=== PATIENT | female | born 1965 | race Caucasian/White ===

== ENCOUNTER 2016-11-09 17:33 | Emergency (ER) | payer MEDICAID ==
--- NOTE | 2016-11-09 18:42 | Emergency Department Record ---
History of Present Illness - General Chief Complaint: Knee injury Stated Complaint: RT KNEE PAIN Time Seen by Provider: 11/09/16 18:37 Source: Patient, Family Mode of Arrival: Wheelchair Limitations: No limitations - History of Present Illness Initial Comments: 51 yo female presents after a injuring her right knee with a fall yesterday. She has had pain in the knee recently and in the past. No other injuries. No recent illness or fever. She has some pain with weight bearing and some swelling. She has MS. She was in the kitchen and her legs gave out. The pain was mild at first then increased over the next 24 hours. PCP Jair[facility] in [place]. Complaint: Knee injury Onset/Timin -: Days(s) Injury: Knee: Right Type of Injury: Other Place: Home Severity: Severe Severity scale (1-10): 10 Improves With: Nothing Worsens With: Weight bearing Context: Fall, Other Associated Symptoms: Able to partially bear weight - Related Data Home Medications Medication Instructions Recorded Confirmed Last Taken Butalb/Acetaminophen/Caffeine 1 cap PO Q4H PRN cap 05/29/16 11/09/16 Unknown [Fioricet 50-300-40 Mg Capsule] Carvedilol 25 mg PO BID tab 05/29/16 11/09/16 Unknown Clonazepam [Klonopin] 0.5 mg PO BID tab 05/29/16 11/09/16 Unknown Hydrochlorothiazide 25 mg PO DAILY tab 05/29/16 11/09/16 Unknown Omeprazole 20 mg PO QD cap 05/29/16 11/09/16 Unknown Venlafaxine HCl 75 mg PO DAILY tab 05/29/16 11/09/16 Unknown Aspirin [Aspir-Low] 81 mg PO DAILY 11/09/16 11/09/16 Unknown Previous Rx's Medication Instructions Recorded Hydrocodone/Acetaminophen [[place] 1 tab PO Q6H PRN #15 tab 11/09/16 5mg/325mg] Allergies Allergy/AdvReac Type Severity Reaction Status Date / Time ibuprofen [From Motrin] Allergy Severe HIVES Verified 11/09/16 18:15 Iodine and Iodide Containing Allergy Severe HIVES Verified 11/09/16 18:16 Produc naproxen sodium [From Aleve] Allergy Severe HIVES Verified 11/09/16 18:16 sulfamethoxazole Allergy Severe HIVES Verified 11/09/16 18:15 [From Bactrim] trimethoprim [From Bactrim] Allergy Severe HIVES Verified 11/09/16 18:15 Travel Screening - Travel/Exposure Within Last 30 Days Have you traveled within the last 30 days?: No Review of Systems Constitutional: Denies: Chills, Fever, Weakness Eyes: Denies: Eye discharge, Eye pain, Photophobia, Vision change ENT: Denies: Congestion Respiratory: Denies: Cough Cardiovascular: Denies: Chest pain, Syncope Endocrine: Denies: Fatigue Gastrointestinal: Denies: Abdominal pain, Diarrhea, Nausea, Vomiting Genitourinary: Denies: Dysuria, Frequency, Hematuria Musculoskeletal: Reports: As per HPI, Arthralgia, Joint swelling, Myalgia. Denies: Back pain Skin: Reports: Bruising. Denies: Change in color Neurological: Denies: Confusion, Headache Psychiatric: Denies: Anxiety Hematological/Lymphatic: Denies: Blood Clots, Easy bleeding, Easy bruising Past Medical History - SOCIAL HISTORY Smoking Status: Current every day smoker Alcohol Use: None Drug Use: Occassional Drug Use Detail:: Marijuana - RESPIRATORY Hx Respiratory Disorders: No - CARDIOVASCULAR Hx Cardio Disorders: No Comment:: blocked right carotid artery - NEURO Hx Neuro Disorders: Yes Hx CVA: Yes (2010) Comment:: MS - GI Hx GI Disorders: Yes Hx Liver Disease: Yes (Possible Hep C) - Hx Genitourinary Disorders: No - ENDOCRINE Hx Endocrine Disorders: No - MUSCULOSKELETAL Hx Musculoskeletal Disorders: Yes Hx Arthritis: Yes - PSYCH Hx Psych Problems: Yes Hx Anxiety: Yes Hx Depression: Yes - HEMATOLOGY/ONCOLOGY Hx Hematology/Oncology Disorders: No Family Medical History Any Significant Family History?: Yes Family Hx Comment (NOT TO BE USED IN PLACE OF ITEMS BELOW): CHF- Mother Hx Cancer: Father Hx Stroke: Mother Physical Exam - General General Appearance: Alert, Oriented x3, Cooperative, No acute distress Limitations: No limitations - Head Head exam: Atraumatic, Normocephalic, Normal inspection - Eye Eye exam: Normal appearance. negative: Conjunctival injection, Periorbital swelling - ENT ENT exam: Normal exam Ear exam: Normal external inspection Nasal Exam: Normal inspection Mouth exam: Normal external inspection Teeth exam: Normal inspection Throat exam: Normal inspection - Neck Neck exam: Normal inspection, Full ROM. negative: Tenderness - Respiratory Respiratory exam: Normal lung sounds bilaterally. negative: Respiratory distress - Cardiovascular Cardiovascular Exam: Regular rate, Normal rhythm, Normal heart sounds - GI/Abdominal GI/Abdominal exam: Soft. negative: Tenderness - Rectal Rectal exam: Deferred - exam: Deferred - Extremities Extremities exam: Joint swelling, Normal capillary refill, Tenderness. negative : Normal inspection, Full ROM (mild decrease due to pain, no deformity or erythema) Image of Full Body: 1 - very mild swelling and slight bruising on inspection, tender anterior, quads and patella tendon function intact, tender laterally, - Back Back exam: Reports: Normal inspection, Full ROM. Denies: Muscle spasm, Rash noted, Tenderness - Neurological Neurological exam: Alert, Normal gait, Oriented X3, Reflexes normal - Psychiatric Psychiatric exam: Normal affect, Normal mood - Skin Skin exam: Dry, Intact, Normal color, Warm Course Vital Signs 11/09/16 18:04 Temperature 97.7 F Pulse Rate 99 H Respiratory 20 Rate Blood Pressure 128/97 Pulse Ox 96 - Reevaluation(s) Reevaluation #1: The XR was negative for FX Their is degenerative changes She will be given ice packs, knee immobilzer, and walker or crutches. 11/09/16 19:28 Disposition Disposition: Discharge Clinical Impression: Contusion, knee Qualifiers: Encounter type: initial encounter Laterality: right Qualified Code(s): S80.01XA - Contusion of right knee, initial encounter Disposition: Home, Self-Care Condition: (1) Good Instructions: Knee Effusion (ED) Additional Instructions: Ice and elevate Avoid weight bearing until pain free Call your doctor tomorrow for close follow up Use the brace and walker for support and comfort Prescriptions: Hydrocodone/Acetaminophen [[place] 5mg/325mg] 1 tab PO Q6H PRN #15 tab PRN Reason: Pain - General Forms: Patient Portal Access Time of Disposition: 19:29
[2016-11-09] MEDS ORDERED: HYDROCODONE/APAP 5/325MG TABLET PO ONE (18:46)
== END 2016-11-09 19:59 | disposition home or self-care (01) ==
LOC: ER 17:33
DX: S80.01XA Contusion of right knee, initial encounter (principal); X50.0XXA Overexertion from strenuous movement or load, initial encounter; Y92.000 Kitchen of unspecified non-institutional (private) residence as the place of occurrence of the external cause
CPT/HCPCS: 99283

== ENCOUNTER 2017-03-08 15:23 | Emergency (ER) | payer MEDICAID ==
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
[2017-03-08] MEDS ORDERED: HYDROCODONE/APAP 7.5/325MG TABLET PO ONE (17:36)
--- NOTE | 2017-03-08 22:26 | CT SCAN REPORT ---
EXAM: CT SCAN CERVICAL SPINE WO CONTRAST HISTORY: INJURY. TECHNIQUE: Sequential axial images were obtained through the cervical spine without intravenous contrast administration. Sagittal and coronal reformatted images were performed. FINDINGS: There is no evidence of compression fracture deformity, subluxation, or perched facet. There is degenerative change at the C5-6 level. This produces bilateral neural foraminal narrowing. IMPRESSION: DEGENERATIVE CHANGE AT C5-6 LEVEL. NO EVIDENCE OF ACUTE FRACTURE, SUBLUXATION, OR PERCHED FACET. JOB NUMBER: [id number] MTDD
--- NOTE | 2017-03-08 22:31 | CT SCAN REPORT ---
EXAM: CT SCAN CHEST WO CONTRAST HISTORY: INJURY. TECHNIQUE: Sequential axial images were obtained from the thoracic inlet through the bilateral adrenal glands without intravenous contrast administration. Sagittal and coronal reformatted images were performed. FINDINGS: The heart and pericardium appear normal. There is no mediastinal or hilar lymphadenopathy. The lung barnes are clear. No pneumothorax. The thoracic spine appears normal. The sternum appears normal. The clavicles appear normal. There is no rib fracture deformity. IMPRESSION: NEGATIVE NONCONTRAST CT OF THE CHEST. JOB NUMBER: [id number] MTDD
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
== END 2017-03-08 17:47 | disposition home or self-care (01) ==
LOC: ER 15:23
DX: S20.229A Contusion of unspecified back wall of thorax, initial encounter (principal); S16.1XXA Strain of muscle, fascia and tendon at neck level, initial encounter; T18.4XXA Foreign body in colon, initial encounter; W18.30XA Fall on same level, unspecified, initial encounter
CPT/HCPCS: 71250; 72125; 74176; 99283; 99284

== ENCOUNTER 2017-03-24 20:25 | Emergency (ER) | payer MEDICAID ==
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
--- NOTE | 2017-03-26 07:26 | RADIOLOGY REPORT ---
EXAM: RIGHT KNEE, THREE VIEWS HISTORY: CHRONIC RIGHT KNEE PAIN. TECHNIQUE: Three views of the right knee were obtained. Comparison: Right knee radiograph 11/09/16. FINDINGS: Increased density in the suprapatellar recess consistent with small joint effusion. Small osteophytes at the medial compartment and patellofemoral compartment. No acute fracture. IMPRESSION: NO CHANGE. MILD BICOMPARTMENTAL ARTHRITIC CHANGE OF THE RIGHT KNEE WITH SMALL JOINT EFFUSION. NO ACUTE OSSEOUS ABNORMALITY. JOB NUMBER: [id number] [facility]
--- NOTE | 2017-03-26 07:29 | RADIOLOGY REPORT ---
EXAM: PELVIS, TWO VIEWS HISTORY: TWO DAYS PELVIS PAIN. TECHNIQUE: Two views of the pelvis were obtained. Comparison: Pelvis CT 03/08/17. FINDINGS: The sacroiliac joints are unremarkable. Minimal narrowing of the superior right femoroacetabular joint. No acute fracture. Linear radiodense focus overlying the right lower quadrant measuring 18 mm may be extrinsic to the patient. IMPRESSION: MILD OSTEOARTHRITIC CHANGE OF THE RIGHT FEMOROACETABULAR JOINT. NO ACUTE PROCESS. J[facility]BER: [id number] [facility]
== END 2017-03-24 22:05 | disposition home or self-care (01) ==
LOC: ER 20:25
DX: S86.911A Strain of unspecified muscle(s) and tendon(s) at lower leg level, right leg, initial encounter (principal); M54.6 Pain in thoracic spine; X50.9XXA Other and unspecified overexertion or strenuous movements or postures, initial encounter; Y93.01 Activity, walking, marching and hiking; Y92.009 Unspecified place in unspecified non-institutional (private) residence as the place of occurrence of the external cause
CPT/HCPCS: 72170; 99283

== ENCOUNTER 2017-03-26 10:46 | Emergency (ER) | payer MEDICAID ==
--- NOTE | 2017-03-26 11:04 | Emergency Department Record ---
History of Present Illness - General Chief Complaint: Ankle/Foot Injury Stated Complaint: RIGHT FOOT PAIN Time Seen by Provider: 03/26/17 10:51 Source: Patient Mode of Arrival: EMS Limitations: No limitations - History of Present Illness Initial Comments: The patient is here due to R foot pain. She states she recently has been walking a lot and it has been painful. She denies any fall, trauma, fever,new R knee pain, or injury. The patient states she has a long hx of chronic foot pain and has had surgery in the past. She also is out of her chronic pain medicines which include Tramadol and [place]. The patient was just in the ER 2 days ago for R knee pain also. MD Complaint: Foot injury Onset/Timin -: Days(s) Type of Injury: Unknown Place: Home Severity scale (1-10): 8 Improves With: Nothing Worsens With: Nothing Context: Walking Associated Symptoms: Able to partially bear weight - Related Data Home Medications Medication Instructions Recorded Confirmed Last Taken Butalb/Acetaminophen/Caffeine 1 cap PO Q4H PRN cap 05/29/16 03/24/17 Unknown [Fioricet 50-300-40 Mg Capsule] Carvedilol 25 mg PO BID tab 05/29/16 03/24/17 Unknown Clonazepam [Klonopin] 0.5 mg PO BID tab 05/29/16 03/24/17 Unknown Hydrochlorothiazide 25 mg PO DAILY tab 05/29/16 03/24/17 03/08/17 Omeprazole 20 mg PO QD cap 05/29/16 03/24/17 Unknown Aspirin 325 mg PO DAILY 03/08/17 03/24/17 03/08/17 Hydrocodone/Acetaminophen [[place] 1 tab PO Q6H PRN 03/08/17 03/24/17 03/07/17 7.5mg/325mg] Topiramate [Topamax] 2 tab PO BID 03/24/17 03/24/17 Unknown Previous Rx's Medication Instructions Recorded Hydrocodone/Acetaminophen [[place] 1 tab PO Q8H PRN #15 tab 03/08/17 7.5mg/325mg] Acetaminophen 325 mg PO QID #28 tablet 03/26/17 Allergies Allergy/AdvReac Type Severity Reaction Status Date / Time ibuprofen [From Motrin] Allergy Severe HIVES Verified 11/09/16 18:15 Iodine and Iodide Containing Allergy Severe HIVES Verified 11/09/16 18:16 Produc naproxen sodium [From Aleve] Allergy Severe HIVES Verified 11/09/16 18:16 sulfamethoxazole Allergy Severe HIVES Verified 11/09/16 18:15 [From Bactrim] trimethoprim [From Bactrim] Allergy Severe HIVES Verified 11/09/16 18:15 Travel Screening - Travel/Exposure Within Last 30 Days Have you traveled within the last 30 days?: No Review of Systems Constitutional: Denies: Chills, Fever Eyes: Denies: Eye discharge ENT: Denies: Congestion Respiratory: Denies: Cough, Dyspnea Past Medical History - SOCIAL HISTORY Smoking Status: Current every day smoker Alcohol Use: None Drug Use: None - RESPIRATORY Hx Respiratory Disorders: No - CARDIOVASCULAR Hx Cardio Disorders: No Comment:: blocked right carotid artery - NEURO Hx Neuro Disorders: Yes Hx CVA: Yes (2010) Comment:: MS - GI Hx GI Disorders: Yes Hx Liver Disease: Yes (Possible Hep C) - Hx Genitourinary Disorders: No - ENDOCRINE Hx Endocrine Disorders: No - MUSCULOSKELETAL Hx Musculoskeletal Disorders: Yes Hx Arthritis: Yes - PSYCH Hx Psych Problems: Yes Hx Anxiety: Yes Hx Depression: Yes - HEMATOLOGY/ONCOLOGY Hx Hematology/Oncology Disorders: No Family Medical History Any Significant Family History?: Yes Family Hx Comment (NOT TO BE USED IN PLACE OF ITEMS BELOW): CHF- Mother Hx Cancer: Father Hx Stroke: Mother Physical Exam - General General Appearance: Alert, Oriented x3, Cooperative, No acute distress - Head Head exam: Atraumatic, Normocephalic, Normal inspection - Eye Eye exam: Normal appearance, PERRL - Extremities Extremities exam: Normal capillary refill, Tenderness (There is no swelling or bruising or erythema but there is diffuse dorsal R foot tenderness.). negative : Normal inspection (There are post op changes to the 1st MT area and chronic 1st and 2nd toe defomities. ), Joint swelling Course Vital Signs 03/26/17 10:53 Temperature 97.8 F Pulse Rate [ 78 Pulse Ox Probe] Respiratory 20 Rate Blood Pressure 110/72 [Left Arm] Pulse Ox 98 - Reevaluation(s) Reevaluation #1: I did discuss the xray result with the patient. She very much would like Tramadol for pain but I explained to her that I do not prescribe that medicine due to the seizure side effect. She is to F/U with her PCP due to her chronic foot pain. 03/26/17 11:33 Disposition Disposition: Discharge Clinical Impression: Foot pain Qualifiers: Laterality: right Qualified Code(s): M79.671 - Pain in right foot Disposition: Home, Self-Care Condition: (1) Good Instructions: Arthralgia (ED) Additional Instructions: Please use the hard soled shoe and crutches for 5 days and see your PCP next week for recheck. Ice and elevate your foot for 2 days when possible. Please also F/U in the GI specialty clinic as directed. Prescriptions: Acetaminophen 325 mg PO QID #28 tablet Forms: Patient Portal Access Time of Disposition: 11:36 Quality - Quality Measures Quality Measures: N/A - Blood Pressure Screening View Details: Yes Blood Pressure Classification: Normal BP Reading Systolic Measurement: 110 Diastolic Measurement: 72 Screening for High Blood Pressure: < Normal BP, F/U Not Required > [G8783] Normal BP Follow-up Interventions: No follow-up required
[2017-03-26] MEDS ORDERED: TRAMADOL HCL 50 MG TABLET PO ONE (11:53)
--- NOTE | 2017-03-26 13:21 | Emergency Department Record ---
History of Present Illness - General Chief Complaint: Ankle/Foot Injury Stated Complaint: RIGHT FOOT PAIN Time Seen by Provider: 03/26/17 10:51 Source: Patient Mode of Arrival: EMS Limitations: No limitations - History of Present Illness Onset/Timin -: Days(s) Type of Injury: Unknown Place: Home Severity scale (1-10): 8 Improves With: Nothing Worsens With: Nothing Context: Walking Associated Symptoms: Able to partially bear weight - Related Data Home Medications Medication Instructions Recorded Confirmed Last Taken Butalb/Acetaminophen/Caffeine 1 cap PO Q4H PRN cap 05/29/16 03/24/17 Unknown [Fioricet 50-300-40 Mg Capsule] Carvedilol 25 mg PO BID tab 05/29/16 03/24/17 Unknown Clonazepam [Klonopin] 0.5 mg PO BID tab 05/29/16 03/24/17 Unknown Hydrochlorothiazide 25 mg PO DAILY tab 05/29/16 03/24/17 03/08/17 Omeprazole 20 mg PO QD cap 05/29/16 03/24/17 Unknown Aspirin 325 mg PO DAILY 03/08/17 03/24/17 03/08/17 Hydrocodone/Acetaminophen [[place] 1 tab PO Q6H PRN 03/08/17 03/24/17 03/07/17 7.5mg/325mg] Topiramate [Topamax] 2 tab PO BID 03/24/17 03/24/17 Unknown Previous Rx's Medication Instructions Recorded Hydrocodone/Acetaminophen [[place] 1 tab PO Q8H PRN #15 tab 03/08/17 7.5mg/325mg] Acetaminophen 325 mg PO QID #28 tablet 03/26/17 Allergies Allergy/AdvReac Type Severity Reaction Status Date / Time ibuprofen [From Motrin] Allergy Severe HIVES Verified 11/09/16 18:15 Iodine and Iodide Containing Allergy Severe HIVES Verified 11/09/16 18:16 Produc naproxen sodium [From Aleve] Allergy Severe HIVES Verified 11/09/16 18:16 sulfamethoxazole Allergy Severe HIVES Verified 11/09/16 18:15 [From Bactrim] trimethoprim [From Bactrim] Allergy Severe HIVES Verified 11/09/16 18:15 Travel Screening - Travel/Exposure Within Last 30 Days Have you traveled within the last 30 days?: No Review of Systems Constitutional: Denies: Chills, Fever Eyes: Denies: Eye discharge ENT: Denies: Congestion Respiratory: Denies: Cough, Dyspnea Past Medical History - SOCIAL HISTORY Smoking Status: Current every day smoker Alcohol Use: None Drug Use: None - RESPIRATORY Hx Respiratory Disorders: No - CARDIOVASCULAR Hx Cardio Disorders: No Comment:: blocked right carotid artery - NEURO Hx Neuro Disorders: Yes Hx CVA: Yes (2010) Comment:: MS - GI Hx GI Disorders: Yes Hx Liver Disease: Yes (Possible Hep C) - Hx Genitourinary Disorders: No - ENDOCRINE Hx Endocrine Disorders: No - MUSCULOSKELETAL Hx Musculoskeletal Disorders: Yes Hx Arthritis: Yes - PSYCH Hx Psych Problems: Yes Hx Anxiety: Yes Hx Depression: Yes - HEMATOLOGY/ONCOLOGY Hx Hematology/Oncology Disorders: No Family Medical History Any Significant Family History?: Yes Family Hx Comment (NOT TO BE USED IN PLACE OF ITEMS BELOW): CHF- Mother Hx Cancer: Father Hx Stroke: Mother Physical Exam - General Limitations: No limitations - Extremities Extremities exam: Normal inspection, Other (Pulses to the R foot are WNL with a normal DP and PT pulses. There was no warmth or erythema appreciated. ). negative: Calf tenderness, Joint swelling, Pedal edema - Neurological Neurological exam: Abnormal gait (due to R foot pain.), Alert. negative: Motor sensory deficit, Normal gait Course Vital Signs 03/26/17 10:53 Temperature 97.8 F Pulse Rate [ 78 Pulse Ox Probe] Respiratory 20 Rate Blood Pressure 110/72 [Left Arm] Pulse Ox 98 Disposition Clinical Impression: Foot pain Qualifiers: Laterality: right Qualified Code(s): M79.671 - Pain in right foot Disposition: Home, Self-Care Condition: (1) Good Instructions: Arthralgia (ED) Additional Instructions: Please use the hard soled shoe and crutches for 5 days and see your PCP next week for recheck. Ice and elevate your foot for 2 days when possible. Please also F/U in the GI specialty clinic as directed. Prescriptions: Acetaminophen 325 mg PO QID #28 tablet Forms: Patient Portal Access Quality - Quality Measures Quality Measures: N/A - Blood Pressure Screening View Details: Yes Blood Pressure Classification: Normal BP Reading Systolic Measurement: 110 Diastolic Measurement: 72 Screening for High Blood Pressure: < Normal BP, F/U Not Required > [G8783] Normal BP Follow-up Interventions: No follow-up required
--- NOTE | 2017-03-27 07:26 | RADIOLOGY REPORT ---
EXAM: RIGHT FOOT COMPLETE HISTORY: METATARSAL PAIN OF THE RIGHT FOOT FOR FIVE DAYS. NO KNOWN INJURY. PRIOR [place] SURGERY. TECHNIQUE: Three views of the right foot were obtained. Comparison: None. Encounter: Initial. FINDINGS: There is normal bone mineralization. Mild hallux valgus deformity is present. No acute fracture, dislocation, or destructive bone lesion is seen. There are changes of arthrodesis of the second PIP joint. There is mild extension deformity of the second MTP joint. Mild degenerative changes are scattered throughout the foot most pronounced at the mid and distal levels. No periarticular erosion. IMPRESSION: 1. NO ACUTE BONE NOR JOINT ABNORMALITY IDENTIFIED. 2. MILD DEGENERATIVE CHANGES. 3. MILD HALLUX VALGUS DEFORMITY. 4. POST ARTHRODESIS OF THE SECOND PIP JOINT. MILD EXTENSION DEFORMITY OF THE SECOND MTP JOINT. JOB NUMBER: [id number] [facility]
== END 2017-03-26 12:08 | disposition home or self-care (01) ==
LOC: ER 10:46
DX: G89.11 Acute pain due to trauma (principal); M79.671 Pain in right foot
CPT/HCPCS: 99283

== ENCOUNTER 2017-04-11 03:38 | Emergency (ER) | payer MEDICAID ==
[2017-04-11] MEDS: KETOROLAC 30 MG/ML VIAL IM ONE (04:19)
[2017-04-11] MEDS: CLINDAMYCIN 150 MG CAP PO ONE (04:19)
--- NOTE | 2017-04-11 04:20 | Emergency Department Record ---
History of Present Illness - General Chief complaint: Lower Extremity Pain Stated complaint: R FOOT PAIN/CELLULITIS Source: Patient Mode of Arrival: EMS Limitations: No limitations - History of Present Illness Initial comments: 51 yo female presents to ED with a CC of right foot pain. Patient reports that she was seen and evaluated for chronic foot pain on 03/26, seen at [facility] the following day and diagnosed with Cellulitis following laboratory studies and dopper examination that was negative for DVT. Patient reports that she has been taking Clindamycin 1 tablet TID (was given Rx for 63) but realized that she had been taking her antibiotic incorrectly and ran out yesterday (would have taken 42 tablets leaving 21 tablets left-over). Patient also reports being prescribed Tramadol both from [facility] as well as through her PCP 04/09/17 ( From [facility] review). Patient denies fevers, chills, or recent illness. MD Complaint: Extremity pain Onset/Timin -: Hour(s) Location: Right, Foot History of Same: Yes Radiation: Proximal Severity scale (1-10): >10 Quality: Sharp, Stabbing Consistency: Constant Improves with: Nothing Worsens with: Palpation, Walking, Weight bearing Associated Symptoms: Denies other symptoms - Related Data Home Medications Medication Instructions Recorded Confirmed Last Taken Butalb/Acetaminophen/Caffeine 1 cap PO Q4H PRN cap 05/29/16 04/11/17 04/10/17 [Fioricet 50-300-40 Mg Capsule] Carvedilol 25 mg PO BID tab 05/29/16 04/11/17 04/10/17 Clonazepam [Klonopin] 0.5 mg PO BID tab 05/29/16 04/11/17 Unknown Aspirin 325 mg PO DAILY 03/08/17 04/11/17 04/10/17 Hydrochlorothiazide 25 mg PO DAILY 04/11/17 04/11/17 04/10/17 Previous Rx's Medication Instructions Recorded Clindamycin HCl 300 mg PO QID #28 capsule 04/11/17 Allergies Allergy/AdvReac Type Severity Reaction Status Date / Time ibuprofen [From Motrin] Allergy Severe HIVES Verified 11/09/16 18:15 Iodine and Iodide Containing Allergy Severe HIVES Verified 11/09/16 18:16 Produc naproxen sodium [From Aleve] Allergy Severe HIVES Verified 11/09/16 18:16 sulfamethoxazole Allergy Severe HIVES Verified 11/09/16 18:15 [From Bactrim] trimethoprim [From Bactrim] Allergy Severe HIVES Verified 11/09/16 18:15 Travel Screening - Travel/Exposure Within Last 30 Days Have you traveled within the last 30 days?: No - Travel Symptoms Symptom Screening: None Review of Systems Constitutional: Denies: Chills, Fever, Malaise, Night sweats Eyes: Denies: Eye discharge, Eye pain ENT: Denies: Congestion, Ear pain, Epistaxis Respiratory: Denies: Cough, Dyspnea Cardiovascular: Denies: Chest pain, Dyspnea on exertion Endocrine: Denies: Fatigue, Heat or cold intolerance Gastrointestinal: Denies: Abdominal pain, Nausea, Vomiting Genitourinary: Denies: Incontinence, Retention Musculoskeletal: Reports: Arthralgia. Denies: Back pain, Gout Skin: Denies: Bruising, Change in color Neurological: Denies: Abnormal gait, Confusion, Headache, Seizure Psychiatric: Denies: Anxiety Hematological/Lymphatic: Denies: Anemia, Blood Clots Past Medical History - SOCIAL HISTORY Smoking Status: Current every day smoker Alcohol Use: None Drug Use: Occasional Drug Use Detail:: Marijuana - RESPIRATORY Hx Respiratory Disorders: No - CARDIOVASCULAR Hx Cardio Disorders: Yes Comment:: blocked right carotid artery - NEURO Hx Neuro Disorders: Yes Hx CVA: Yes (2010) Comment:: MS - GI Hx GI Disorders: Yes Hx Liver Disease: Yes (Possible Hep C) - Hx Genitourinary Disorders: No - ENDOCRINE Hx Endocrine Disorders: No - MUSCULOSKELETAL Hx Musculoskeletal Disorders: Yes Hx Arthritis: Yes Hx Fibromyalgia: Yes - PSYCH Hx Psych Problems: Yes Hx Anxiety: Yes Hx Depression: Yes - HEMATOLOGY/ONCOLOGY Hx Hematology/Oncology Disorders: No Family Medical History Any Significant Family History?: Yes Family Hx Comment (NOT TO BE USED IN PLACE OF ITEMS BELOW): CHF- Mother Hx Cancer: Father Hx Stroke: Mother Physical Exam - General General Appearance: Alert, Oriented x3, Cooperative, Anxious (Patient appears anxious on examination) Limitations: No limitations - Head Head exam: Atraumatic, Normocephalic, Normal inspection Head exam detail: negative: Abrasion, Contusion, Drake's sign, General tenderness, Hematoma, Laceration - Eye Eye exam: Normal appearance. negative: Conjunctival injection, Periorbital swelling, Periorbital tenderness, Scleral icterus - ENT Ear exam: negative: Auricular hematoma, Auricular trauma Nasal Exam: negative: Active bleeding, Discharge, Dried blood, Foreign body Mouth exam: negative: Drooling, Laceration, Muffled voice, Tongue elevation - Neck Neck exam: Normal inspection. negative: Meningismus, Tenderness - Respiratory Respiratory exam: Normal lung sounds bilaterally. negative: Rales, Respiratory distress, Rhonchi, Stridor - Cardiovascular Cardiovascular Exam: Regular rate, Normal rhythm, Normal heart sounds Peripheral Pulses: 3+: Radial (R) (normal pulse) - GI/Abdominal GI/Abdominal exam: Soft. negative: Rebound, Rigid, Tenderness - Rectal Rectal exam: Deferred - exam: Deferred - Extremities Extremities exam: Other (Normal pulse on examination, no erythema is present, no STS is present on examination). negative: Calf tenderness, Pedal edema, Tenderness - Back Back exam: Denies: CVA tenderness (R), CVA tenderness (L) - Neurological Neurological exam: Alert, Oriented X3 - Psychiatric Psychiatric exam: Anxious - Skin Skin exam: Normal color. negative: Abrasion Type of lesion: negative: abrasion Course Vital Signs 04/11/17 03:43 Temperature 97.5 F L Pulse Rate [ 83 Pulse Ox Probe] Respiratory 26 H Rate Blood Pressure 122/108 [Left Arm] Pulse Ox 94 L - Reevaluation(s) Reevaluation #1: 04/11/17 04:22 On examination there is no obvious signs of cellulitis, patient is repeatedly asking for pain medication but reports having her Tramadol with her. Will renew the patient's clindamycin as she is convinced that she has cellulitis and administer Toradol in ED (patient reports having toradaol previously without adverse reaction). Patient was instructed to follow-up with Dr. De La O in 1-3 days as directed. Disposition Disposition: Discharge Clinical Impression: Chronic foot pain Qualifiers: Laterality: right Qualified Code(s): M79.671 - Pain in right foot Disposition: Home, Self-Care Condition: (2) Stable Instructions: Chronic Pain (ED) Additional Instructions: Return to ED if your symptoms worsen or if you have any concerns. Clindamycin as prescribed. Follow-up with Dr. De La O in 1-3 days as directed. Prescriptions: Clindamycin HCl 300 mg PO QID #28 capsule Forms: Patient Portal Access Time of Disposition: 04:25 Quality - Quality Measures Quality Measures: N/A - Blood Pressure Screening Blood Pressure Classification: Normal BP Reading Systolic Measurement: 119 Diastolic Measurement: 76 Screening for High Blood Pressure: < Normal BP, F/U Not Required > [G8783] Normal BP Follow-up Interventions: No follow-up required
== END 2017-04-11 04:38 | disposition home or self-care (01) ==
LOC: ER 03:38
DX: G89.29 Other chronic pain (principal); M79.671 Pain in right foot
CPT/HCPCS: 99283 ×2; 96372; J1885

== ENCOUNTER 2017-04-25 12:15 | Emergency (ER) | payer MEDICAID ==
--- NOTE | 2017-04-25 13:25 | Emergency Department Record ---
History of Present Illness - General Chief complaint: Lower Extremity Pain Stated complaint: L FOOT INFECTION Time Seen by Provider: 04/25/17 13:12 Source: Patient Mode of Arrival: Ambulatory Limitations: No limitations - History of Present Illness Initial comments: The patient is here due to R foot pain. She has had a chronic problem with R foot pain and presumed Cellulitis. She just finished her oral Abx about a week ago and now for the last 3 days the pain in the foot has worsened and she believes she has the Cellulitis back again. The patient denies any trauma, injury, or fall and also denies any fever, chills, or vomiting. The patient also states she is out of all her medicines and is supposed to see her PCP soon in the family practice clinic here. MD Complaint: Extremity pain Onset/Timin -: Month(s) Location: Right, Foot Quality: Aching Consistency: Constant Improves with: Cold therapy Worsens with: Nothing Associated Symptoms: Denies other symptoms - Related Data Home Medications Medication Instructions Recorded Confirmed Last Taken Butalb/Acetaminophen/Caffeine 1 cap PO Q4H PRN cap 05/29/16 04/25/17 04/24/17 [Fioricet 50-300-40 Mg Capsule] Carvedilol 25 mg PO BID tab 05/29/16 04/25/17 04/24/17 Clonazepam [Klonopin] 0.5 mg PO BID tab 05/29/16 04/25/17 04/24/17 Aspirin 325 mg PO DAILY 03/08/17 04/25/17 04/24/17 Hydrochlorothiazide 25 mg PO DAILY 04/11/17 04/25/17 04/24/17 Hydrocodone/Acetaminophen [[place] 1 each PO ASDIR 04/25/17 04/25/17 04/24/17 7.5-325 Tablet] Tramadol HCl [Ultram] 50 mg PO Q6H 04/25/17 04/25/17 04/24/17 Previous Rx's Medication Instructions Recorded Cephalexin [Keflex] 500 mg PO QID #28 cap 04/25/17 Allergies Allergy/AdvReac Type Severity Reaction Status Date / Time ibuprofen [From Motrin] Allergy Severe HIVES Verified 11/09/16 18:15 Iodine and Iodide Containing Allergy Severe HIVES Verified 11/09/16 18:16 Produc naproxen sodium [From Aleve] Allergy Severe HIVES Verified 11/09/16 18:16 sulfamethoxazole Allergy Severe HIVES Verified 11/09/16 18:15 [From Bactrim] trimethoprim [From Bactrim] Allergy Severe HIVES Verified 11/09/16 18:15 Travel Screening - Travel/Exposure Within Last 30 Days Have you traveled within the last 30 days?: No - Travel/Exposure Within Last Year Have you traveled outside the [place] in the last year?: No - Additonal Travel Details Have you been exposed to anyone with a communicable illness?: No - Travel Symptoms Symptom Screening: None Review of Systems Constitutional: Denies: Chills, Fever Eyes: Denies: Eye discharge ENT: Denies: Congestion Respiratory: Denies: Cough Musculoskeletal: Reports: Arthralgia Past Medical History - SOCIAL HISTORY Smoking Status: Current every day smoker Alcohol Use: None Drug Use: Occasional Drug Use Detail:: Marijuana - RESPIRATORY Hx Respiratory Disorders: No - CARDIOVASCULAR Hx Cardio Disorders: Yes Comment:: blocked right carotid artery - NEURO Hx Neuro Disorders: Yes Hx CVA: Yes (2010) Comment:: MS - GI Hx GI Disorders: Yes Hx Liver Disease: Yes (Possible Hep C) - Hx Genitourinary Disorders: No - ENDOCRINE Hx Endocrine Disorders: No - MUSCULOSKELETAL Hx Musculoskeletal Disorders: Yes Hx Arthritis: Yes Hx Fibromyalgia: Yes Comment:: MS. - PSYCH Hx Psych Problems: Yes Hx Anxiety: Yes Hx Depression: Yes - HEMATOLOGY/ONCOLOGY Hx Hematology/Oncology Disorders: No Family Medical History Any Significant Family History?: No Family Hx Comment (NOT TO BE USED IN PLACE OF ITEMS BELOW): CHF- Mother Hx Cancer: Father Hx Stroke: Mother Physical Exam - General General Appearance: Alert, Oriented x3, Cooperative, No acute distress - Head Head exam: Atraumatic, Normocephalic, Normal inspection - Eye Eye exam: Normal appearance, PERRL - Neck Neck exam: Normal inspection, Full ROM. negative: Tenderness - Respiratory Respiratory exam: Normal lung sounds bilaterally. negative: Respiratory distress - Cardiovascular Cardiovascular Exam: Regular rate, Normal rhythm, Normal heart sounds - GI/Abdominal GI/Abdominal exam: Soft, Normal bowel sounds. negative: Tenderness - Extremities Extremities exam: Normal capillary refill, Tenderness (There is tenderness to the dorsal midfoot. There are no lesions or wounds appreciated.), Other (The R foot DP and PT pulses are intact.). negative: Normal inspection (There is very slight erythema and warmth to the dorsal midfoot only. There is no swelling.), Calf tenderness, Joint swelling, Pedal edema Course Vital Signs 04/25/17 12:20 Temperature 97.9 F Pulse Rate 79 Respiratory 20 Rate Blood Pressure 125/82 Pulse Ox 96 - Reevaluation(s) Reevaluation #1: After the patient's evaluation she states she no longer is able to stay here in the ER. She is refusing her lab tests and IV Abx's. I explained to her that by NOT doing those things she could develop a worsening infection which can lead to sepsis, gangrene, loss of limb, disability and . The patient understands the risks of leaving and accepts the risks. She presently has proper decision making capacity and was told she can return to the ER at any time for re-evaluation. 04/25/17 13:46 Medical Decision Making - Lab Data Result diagrams: 04/25/17 13:26 04/25/17 13:26 Disposition Disposition: Discharge Clinical Impression: Foot pain Qualifiers: Laterality: right Qualified Code(s): M79.671 - Pain in right foot Disposition: Against Medical Advice Condition: (2) Stable Instructions: Arthralgia (ED) Additional Instructions: Please take the Keflex as directed and please see your PCP for further evaluation. Prescriptions: Cephalexin [Keflex] 500 mg PO QID #28 cap Forms: Patient Portal Access Time of Disposition: 13:41 Quality - Quality Measures Quality Measures: N/A - Blood Pressure Screening View Details: Yes Does Patient Have Any of the Following: No Blood Pressure Classification: Pre-Hypertensive BP Reading Systolic Measurement: 125 Diastolic Measurement: 82 Screening for High Blood Pressure: < Pre-Hypertensive BP, F/U Documented > [ G8950] Pre-Hypertensive Follow-up Interventions: Referral to alternative/primary care provider.
[2017-04-25] MEDS ORDERED: CEFTRIAXONE SODIUM 1 GM in 0.9 % SODIUM CHLORIDE 100ML 100 ML IVPB ONE (13:26)
== END 2017-04-25 14:02 | disposition left against medical advice (07) ==
LOC: ER 12:15
DX: M79.671 Pain in right foot (principal)
CPT/HCPCS: 99282

== ENCOUNTER 2018-03-25 20:07 | Emergency (ER) | payer MEDICAID ==
[2018-03-25] MEDS ORDERED: CEPHALEXIN 500 MG CAPSULE PO STA (20:21)
--- NOTE | 2018-03-25 20:21 | Emergency Department Record ---
History of Present Illness - General Chief complaint: Pain Stated complaint: TOE PAIN Source: Patient - History of Present Illness Initial comments: Two days ago her left second toe and top of foot began tingling like something might be wrong. She was planning on seeing her doctor next week, but tonight her toe is more painful, and warm and she thinks it may be an infection. She denies trauma or injury. She has had several toe surgeries, none recently, because her toes of both feet were crossed over each other and she had bunion repairs. She has no pin in her left foot or toes. MD Complaint: Extremity pain, Extremity swelling - Related Data Home Medications Medication Instructions Recorded Confirmed Last Taken Aspirin [Ecotrin] 325 mg PO DAILY 03/25/18 03/25/18 Unknown Butalb/Acetaminophen/Caffeine 1 each PO ASDIR PRN 03/25/18 03/25/18 Unknown [Fioricet 50-300-40 mg Capsule] Carvedilol 6.25 mg PO BID 03/25/18 03/25/18 Unknown Hydrochlorothiazide [Hctz] 25 mg PO DAILY 03/25/18 03/25/18 Unknown Previous Rx's Medication Instructions Recorded Cephalexin [Keflex] 500 mg PO QID #39 cap 03/25/18 Allergies Allergy/AdvReac Type Severity Reaction Status Date / Time ibuprofen [From Motrin] Allergy Severe HIVES Unverified 05/15/17 13:21 Iodine and Iodide Containing Allergy Severe HIVES Unverified 05/15/17 13:21 Produc naproxen sodium [From Aleve] Allergy Severe HIVES Unverified 05/15/17 13:21 sulfamethoxazole Allergy Severe HIVES Unverified 05/15/17 13:21 [From Bactrim] trimethoprim [From Bactrim] Allergy Severe HIVES Unverified 05/15/17 13:21 Review of Systems Reviewed: No additional complaints except as noted below Constitutional: Reports: As per HPI. Denies: Chills, Fever, Malaise, Night sweats, Weakness, Weight change Eyes: Reports: As per HPI. Denies: Eye discharge, Eye pain, Photophobia, Vision change ENT: Reports: As per HPI. Denies: Congestion, Dental pain, Ear pain, Epistaxis , Hearing loss, Throat pain Respiratory: Reports: As per HPI. Denies: Cough, Dyspnea, Hemoptysis, Stridor, Wheezes Cardiovascular: Reports: As per HPI. Denies: Arrhythmia, Chest pain, Dyspnea on exertion, Edema, Murmurs, Orthopnea, Palpitations, Paroxysmal nocturnal dyspnea, Rheumatic Fever, Syncope Endocrine: Reports: As per HPI. Denies: Fatigue, Heat or cold intolerance, Polydipsia, Polyuria Gastrointestinal: Reports: As per HPI. Denies: Abdominal pain, Constipation, Diarrhea, Hematemesis, Hematochezia, Melena, Nausea, Vomiting Genitourinary: Reports: As per HPI. Denies: Abnormal menses, Discharge, Dyspareunia, Dysuria, Frequency, Hematuria, Incontinence, Retention, Urgency Musculoskeletal: Reports: As per HPI. Denies: Arthralgia, Back pain, Gout, Joint swelling, Myalgia, Neck pain Skin: Reports: As per HPI. Denies: Bruising, Change in color, Change in hair/ nails, Lesions, Pruritus, Rash Neurological: Reports: As per HPI. Denies: Abnormal gait, Confusion, Headache, Numbness, Paresthesias, Seizure, Tingling, Tremors, Vertigo, Weakness Psychiatric: Reports: As per HPI. Denies: Anxiety, Auditory hallucinations, Depression, Homicidal thoughts, Suicidal thoughts, Visual hallucinations Hematological/Lymphatic: Reports: As per HPI. Denies: Anemia, Blood Clots, Easy bleeding, Easy bruising, Swollen glands Past Medical History - SOCIAL HISTORY Smoking Status: Former smoker Drug Use: None - RESPIRATORY Hx Respiratory Disorders: No - CARDIOVASCULAR Hx Cardio Disorders: Yes Comment:: blocked right carotid artery - NEURO Hx Neuro Disorders: Yes Hx CVA: Yes (2010) Comment:: MS - GI Hx GI Disorders: Yes Hx Liver Disease: Yes (Possible Hep C) - Hx Genitourinary Disorders: No - ENDOCRINE Hx Endocrine Disorders: No - MUSCULOSKELETAL Hx Musculoskeletal Disorders: Yes Hx Arthritis: Yes Hx Fibromyalgia: Yes Comment:: MS. - PSYCH Hx Psych Problems: Yes Hx Anxiety: Yes Hx Depression: Yes - HEMATOLOGY/ONCOLOGY Hx Hematology/Oncology Disorders: No Family Medical History Family Hx Comment (NOT TO BE USED IN PLACE OF ITEMS BELOW): CHF- Mother Hx Cancer: Father Hx Stroke: Mother Physical Exam - General General Appearance: Alert, Oriented x3, Cooperative, Mild distress - Head Head exam: Normal inspection - Eye Eye exam: Normal appearance, PERRL Pupils: Normal accommodation - ENT ENT exam: Normal exam, Mucous membranes moist, Normal external ear exam, Normal orophraynx, TM's normal bilaterally Ear exam: Normal external inspection. negative: External canal tenderness Nasal Exam: Normal inspection. negative: Discharge, Sinus tenderness Mouth exam: Normal external inspection, Tongue normal Teeth exam: Normal inspection. negative: Dental caries Throat exam: Normal inspection. negative: Tonsillar erythema, Tonsillar exudate - Neck Neck exam: Normal inspection, Full ROM. negative: Tenderness - Respiratory Respiratory exam: Normal lung sounds bilaterally. negative: Respiratory distress - Cardiovascular Cardiovascular Exam: Regular rate, Normal rhythm, Normal heart sounds - GI/Abdominal GI/Abdominal exam: Soft, Normal bowel sounds. negative: Tenderness - Rectal Rectal exam: Deferred - exam: Deferred - Extremities Extremities exam: Normal inspection, Full ROM, Normal capillary refill, Tenderness (left second toe erythematous, warm, and swollen. Very old surgical scars noted. Soreness to foot just distal to ankle.) - Back Back exam: Reports: Normal inspection, Full ROM. Denies: Muscle spasm, Rash noted, Tenderness - Neurological Neurological exam: Alert, Normal gait, Oriented X3, Reflexes normal - Psychiatric Psychiatric exam: Normal affect, Normal mood - Skin Skin exam: Dry, Intact, Normal color, Warm Course Vital Signs 03/25/18 20:12 Temperature 98 F Pulse Rate [ 101 H Pulse Ox Probe] Respiratory 20 Rate Blood Pressure 120/80 [Left Arm] Pulse Ox 98 - Reevaluation(s) Reevaluation #1: Patient is requesting tylenol and script sent to [facility]. Post op shoe ordered. She already has an appointment with her foot doctor next Thursday. 03/25/18 20:47 Disposition Clinical Impression: Cellulitis of toe of left foot Disposition: Home, Self-Care Condition: (1) Good Instructions: Cellulitis (ED) Additional Instructions: Take keflex as directed until gone. Post op shoe to left foot. Minimal to no ambulation. Elevate foot above heart as much as possible. Tylenol or ibuprofen as directed as needed for pain. Follow up with your ancillary services manager therapy next 03-30-18 as previously arranged. Prescriptions: Cephalexin [Keflex] 500 mg PO QID #39 cap Forms: Patient Portal Access Quality - Quality Measures Quality Measures: N/A - Blood Pressure Screening Does Patient Have Any of the Following: No Blood Pressure Classification: Pre-Hypertensive BP Reading Systolic Measurement: 120 Diastolic Measurement: 80 Screening for High Blood Pressure: < Normal BP, F/U Not Required > [G7435]
[2018-03-25] MEDS ORDERED: ACETAMINOPHEN 325 MG TAB PO ONE (20:45)
--- NOTE | 2018-03-26 14:03 | RADIOLOGY REPORT ---
EXAM: LEFT FOOT, THREE VIEWS HISTORY: SECOND TOE SWELLING AND WARMTH. PAIN. TECHNIQUE: Three views of the left foot were obtained. FINDINGS: There appears to be a chronic deformity involving the region of the second PIP joint where there is fusion. There is lateral angulation. There also appears to be a chronic deformity involving the first metatarsal and first proximal phalanx at the level of the first MTP joint. No clearly acute osseous abnormality is seen. No osseous destructive changes to suggest osteomyelitis most notably in the region of the second toe. Mild scattered soft tissue swelling. IMPRESSION: NO CONVINCING ACUTE OSSEOUS ABNORMALITY. CHRONIC CHANGES INVOLVING THE SECOND PIP AND FIRST MTP JOINTS. JOB NUMBER: [id number] MTDD
== END 2018-03-25 21:13 | disposition home or self-care (01) ==
LOC: ER 20:07
DX: L03.032 Cellulitis of left toe (principal); G35 Multiple sclerosis; Z87.891 Personal history of nicotine dependence
CPT/HCPCS: 99283

== ENCOUNTER 2018-04-02 10:59 | Emergency (ER) | payer MEDICAID ==
[2018-04-02] MEDS ORDERED: HYDROCODONE/APAP 7.5/325MG TABLET PO ONE (11:05)
--- NOTE | 2018-04-02 11:11 | Emergency Department Record ---
History of Present Illness - General Chief complaint: Lower Extremity Pain Stated complaint: CELLULITIS Time Seen by Provider: 04/02/18 11:03 Source: Patient Mode of Arrival: Ambulatory Limitations: No limitations - History of Present Illness Initial comments: 52 yo female presents with about one week of left foot pain. She states she was in the ED for an evaluation at that time. She was placed on Keflex and had an XR. She states the symptoms are unchanged. She has pain near the great toe , 2nd toe into the foot. She has had prior bilateral foot surgery. Non recently. No fevers. No streaking redness. No numbness. No abnormal coolness or warmth noted by the patient. She removed the toe ring on the 3rd toe easily at my request on arrival. Complaint: Extremity pain -: Week(s) (1) Location: Foot -: Yes Arthralgia Radiation: Distal Quality: Aching Consistency: Constant Improves with: Nothing Worsens with: Nothing Associated Symptoms: Denies other symptoms - Related Data Previous Rx's Medication Instructions Recorded Cephalexin [Keflex] 500 mg PO QID #39 cap 03/25/18 Clindamycin HCl 300 mg PO QID #28 capsule 04/02/18 Hydrocodone/Acetaminophen [[place] 1 each PO Q6HR #12 tablet 04/02/18 5-325 Tablet] Allergies Allergy/AdvReac Type Severity Reaction Status Date / Time ibuprofen [From Motrin] Allergy Severe HIVES Unverified 05/15/17 13:21 Iodine and Iodide Containing Allergy Severe HIVES Unverified 05/15/17 13:21 Produc naproxen sodium [From Aleve] Allergy Severe HIVES Unverified 05/15/17 13:21 sulfamethoxazole Allergy Severe HIVES Unverified 05/15/17 13:21 [From Bactrim] trimethoprim [From Bactrim] Allergy Severe HIVES Unverified 05/15/17 13:21 Review of Systems Constitutional: Denies: Chills, Fever, Malaise, Weakness Eyes: Denies: Eye discharge, Eye pain, Vision change ENT: Denies: Congestion, Throat pain Respiratory: Denies: Cough Cardiovascular: Denies: Chest pain, Palpitations, Syncope Endocrine: Denies: Fatigue Gastrointestinal: Denies: Abdominal pain, Diarrhea, Nausea, Vomiting Genitourinary: Denies: Dysuria, Urgency Musculoskeletal: Reports: As per HPI, Arthralgia Skin: Denies: Bruising, Change in color, Rash Neurological: Denies: Headache, Numbness, Weakness Psychiatric: Denies: Anxiety Hematological/Lymphatic: Denies: Blood Clots, Easy bleeding, Easy bruising Past Medical History - SOCIAL HISTORY Smoking Status: Former smoker Drug Use: None - RESPIRATORY Hx Respiratory Disorders: No - CARDIOVASCULAR Hx Cardio Disorders: Yes Comment:: blocked right carotid artery - NEURO Hx Neuro Disorders: Yes Hx CVA: Yes (2010) Comment:: MS - GI Hx GI Disorders: Yes Hx Liver Disease: Yes (Possible Hep C) - Hx Genitourinary Disorders: No - ENDOCRINE Hx Endocrine Disorders: No - MUSCULOSKELETAL Hx Musculoskeletal Disorders: Yes Hx Arthritis: Yes Hx Fibromyalgia: Yes Comment:: MS. - PSYCH Hx Psych Problems: Yes Hx Anxiety: Yes Hx Depression: Yes - HEMATOLOGY/ONCOLOGY Hx Hematology/Oncology Disorders: No Family Medical History Family Hx Comment (NOT TO BE USED IN PLACE OF ITEMS BELOW): CHF- Mother Hx Cancer: Father Hx Stroke: Mother Physical Exam - General General Appearance: Alert, Oriented x3, Cooperative, No acute distress Limitations: No limitations - Head Head exam: Atraumatic, Normal inspection - Eye Eye exam: Normal appearance. negative: Conjunctival injection, Scleral icterus - ENT ENT exam: Normal exam, Mucous membranes moist Ear exam: Normal external inspection Nasal Exam: Normal inspection - Neck Neck exam: Normal inspection - Respiratory Respiratory exam: Normal lung sounds bilaterally - Cardiovascular Cardiovascular Exam: Regular rate, Normal rhythm, Normal heart sounds Peripheral Pulses: 2+: Dorsalis Pedis (L) (Strong left DP and PT with brisk CR of the foot) - GI/Abdominal GI/Abdominal exam: Soft. negative: Tenderness - Rectal Rectal exam: Deferred - exam: Deferred - Extremities Extremities exam: Tenderness Image of Feet: 1 - very mild swelling. Intact nails, brisk cap refill. No sign of abscess, pus current or recent drainage. No abnormal warmth or coolness. The DP is +2 and strong. Well perfused foot. The plantar side is normal to inspection. - Neurological Neurological exam: Alert, Oriented X3 - Psychiatric Psychiatric exam: Normal affect, Normal mood - Skin Skin exam: Dry, Intact, Normal color, Warm. negative: Erythema Course - Reevaluation(s) Reevaluation #1: The physical examination findings are mild at this time The is very mild great toe and 2nd toe swelling. She has warm, well perfused foot with strong pulses. No sign of abscess, ingrown nail, or paronychia The XR from 03/25/18 was reviewed. No acute process. Her vitals were reviewed. No acute changes. She has an appointment with her pipeline technician on 04/06/18. A copy of XR was placed on CD to take to the appointment. 04/02/18 11:11 04/02/18 11:15 04/02/18 11:32 The patient refused labs after the tech was unsuccessful on first attempt. She has normal vitals, very mild findings on the examination. She was provided RX for Clindamycin. She has reliable follow up firs of the week. Medical Decision Making - Lab Data Result diagrams: 04/02/18 11:05 04/02/18 11:05 Disposition Disposition: Discharge Clinical Impression: Cellulitis of toe of left foot Disposition: Home, Self-Care Condition: (1) Good Instructions: Cellulitis (ED) Additional Instructions: Follow up on Thursday as scheduled with your pipeline technician Avoid prolong standing or putting weight on the left foot Be seen if fever, worse or any new concerns. Prescriptions: Hydrocodone/Acetaminophen [[place] 5-325 Tablet] 1 each PO Q6HR #12 tablet Clindamycin HCl 300 mg PO QID #28 capsule Forms: Patient Portal Access Time of Disposition: 11:33 Quality - Quality Measures Quality Measures: N/A - Blood Pressure Screening Does Patient Have Any of the Following: Active Dx of HTN Blood Pressure Classification: Pre-Hypertensive BP Reading Systolic Measurement: 137 Diastolic Measurement: 76 Screening for High Blood Pressure: Patient Exclusion, Hx of HTN [G9744]
[2018-04-02] MEDS ORDERED: CLINDAMYCIN 150 MG CAP PO ONE (11:22)
== END 2018-04-02 12:13 | disposition home or self-care (01) ==
LOC: ER 10:59
DX: L03.116 Cellulitis of left lower limb (principal); I10 Essential (primary) hypertension; Z87.891 Personal history of nicotine dependence; Z86.73 Personal history of transient ischemic attack (TIA), and cerebral infarction without residual deficits
CPT/HCPCS: 99283

== ENCOUNTER 2018-06-22 20:28 | Emergency (ER) | payer MEDICAID ==
--- NOTE | 2018-06-22 20:36 | Emergency Department Record ---
History of Present Illness - General Chief complaint: Pain Stated complaint: knee pain Time Seen by Provider: 06/22/18 20:30 Source: Patient, EMS Mode of Arrival: EMS Limitations: No limitations - History of Present Illness Initial comments: 53 yo female presents to ED for evaluation of bilateral knee pain for the past 6 days. Patient reports a history of chronic knee pain, but following discharge from a psychiatric facility 6 days ago, her Tramadol and [place] were not refilled. Patient reports that she saw her orthopedist earlier today, was told that she needed to follow-up with her PCP for continued pain medications. Patient denies fevers, chills, redness, or new injury. Patient denies taking anything for her pain symptoms at home. MD Complaint: Joint pain Onset/Timin -: Days(s) Location: Left, Right, Knee History of Same: Yes -: Yes Arthralgia Quality: Aching Consistency: Constant Improves with: Nothing Worsens with: Walking Associated Symptoms: Denies other symptoms - Related Data Previous Rx's Medication Instructions Recorded Cephalexin [Keflex] 500 mg PO QID #39 cap 03/25/18 Clindamycin HCl 300 mg PO QID #28 capsule 04/02/18 Hydrocodone/Acetaminophen [[place] 1 each PO Q6HR #12 tablet 04/02/18 5-325 Tablet] Allergies Allergy/AdvReac Type Severity Reaction Status Date / Time ibuprofen [From Motrin] Allergy Severe HIVES Unverified 05/15/17 13:21 Iodine and Iodide Containing Allergy Severe HIVES Unverified 05/15/17 13:21 Produc naproxen sodium [From Aleve] Allergy Severe HIVES Unverified 05/15/17 13:21 sulfamethoxazole Allergy Severe HIVES Unverified 05/15/17 13:21 [From Bactrim] trimethoprim [From Bactrim] Allergy Severe HIVES Unverified 05/15/17 13:21 Review of Systems Constitutional: Denies: Chills, Fever, Malaise, Night sweats Eyes: Denies: Eye discharge, Eye pain ENT: Denies: Congestion, Ear pain, Epistaxis Respiratory: Denies: Cough, Dyspnea Cardiovascular: Denies: Chest pain, Dyspnea on exertion Endocrine: Denies: Fatigue, Heat or cold intolerance Gastrointestinal: Denies: Abdominal pain, Nausea, Vomiting Genitourinary: Denies: Incontinence, Retention Musculoskeletal: Denies: Arthralgia, Back pain Skin: Denies: Bruising, Change in color Neurological: Denies: Abnormal gait, Confusion, Headache, Seizure Psychiatric: Denies: Anxiety Hematological/Lymphatic: Denies: Anemia, Blood Clots Past Medical History - SOCIAL HISTORY Smoking Status: Former smoker Drug Use: None - RESPIRATORY Hx Respiratory Disorders: No - CARDIOVASCULAR Hx Cardio Disorders: Yes Comment:: blocked right carotid artery - NEURO Hx Neuro Disorders: Yes Hx CVA: Yes (2010) Comment:: MS - GI Hx GI Disorders: Yes Hx Liver Disease: Yes (Possible Hep C) - Hx Genitourinary Disorders: No - ENDOCRINE Hx Endocrine Disorders: No - MUSCULOSKELETAL Hx Musculoskeletal Disorders: Yes Hx Arthritis: Yes Hx Fibromyalgia: Yes Comment:: MS. - PSYCH Hx Psych Problems: Yes Hx Anxiety: Yes Hx Depression: Yes - HEMATOLOGY/ONCOLOGY Hx Hematology/Oncology Disorders: No Family Medical History Family Hx Comment (NOT TO BE USED IN PLACE OF ITEMS BELOW): CHF- Mother Hx Cancer: Father Hx Stroke: Mother Physical Exam - General General Appearance: Alert, Oriented x3, Mild distress, Other (Patient appears intoxicated, mildly drowsly on examination) Limitations: No limitations - Head Head exam: Atraumatic, Normocephalic, Normal inspection Head exam detail: negative: Abrasion, Contusion, Drake's sign, General tenderness, Hematoma, Laceration - Eye Eye exam: Other (Pupils 2 mm bilaterally, sluggishly reactive). negative: Conjunctival injection, Periorbital swelling, Periorbital tenderness, Scleral icterus - ENT Ear exam: negative: Auricular hematoma, Auricular trauma Nasal Exam: negative: Active bleeding, Discharge, Dried blood, Foreign body Mouth exam: negative: Drooling, Laceration, Muffled voice, Tongue elevation - Neck Neck exam: Normal inspection. negative: Meningismus, Tenderness - Respiratory Respiratory exam: Normal lung sounds bilaterally. negative: Rales, Respiratory distress, Rhonchi, Stridor - Cardiovascular Cardiovascular Exam: Regular rate, Normal rhythm, Normal heart sounds - GI/Abdominal GI/Abdominal exam: Soft. negative: Rebound, Rigid, Tenderness - Rectal Rectal exam: Deferred - exam: Deferred - Extremities Extremities exam: Normal inspection, Other (No erythema is present to either knee, spontaneous ROM present of both knees, no effusions are present. ). negative: Calf tenderness, Pedal edema, Tenderness - Back Back exam: Denies: CVA tenderness (R), CVA tenderness (L) - Neurological Neurological exam: Alert, Oriented X3. negative: Motor sensory deficit - Psychiatric Psychiatric exam: Flat affect - Skin Skin exam: Normal color. negative: Abrasion Type of lesion: negative: abrasion Course - Reevaluation(s) Reevaluation #1: 06/22/18 20:38 Patient was seen and examined, refuses blood tests to exclude septic joint (no clinical evidence for septic joint is present on examination however). Patient also refuses urine test to perform UDS. MAPS was reviewed, patient had been receiving Tramadol from Dr. Rivers until March of this year. Overdose risk score is 560 as well. Patient states that she has established with a new PCP but has not seen them for an initial visit as of yet. Patient states "can't you just give me pain shot without doing tests?". Patient appears mildly-moderately intoxicated on examination, and additional analgesia without further evaluation via blood and urine tests medellin not seem safe for the patient. Patient has refused further evaluation here in the ED, will have the patient call for a ride home at this time. Disposition Disposition: Discharge Clinical Impression: Chronic knee pain Qualifiers: Laterality: bilateral Qualified Code(s): M25.561 - Pain in right knee Disposition: Home, Self-Care Condition: (2) Stable Instructions: Chronic Pain (ED) Additional Instructions: Return to ED if your symptoms worsen or if you have any concerns. Ibuprofen as directed for pain. Follow-up with your family doctor in 1-3 days as directed for further evaluation of your chronic pain. Forms: Patient Portal Access Time of Disposition: 20:42 Quality - Quality Measures Quality Measures: N/A - Blood Pressure Screening Does Patient Have Any of the Following: No Blood Pressure Classification: Normal BP Reading Systolic Measurement: 106 Diastolic Measurement: 73 Screening for High Blood Pressure: < Normal BP, F/U Not Required > [G8783]
== END 2018-06-22 21:13 | disposition home or self-care (01) ==
LOC: ER 20:28
DX: M25.661 Stiffness of right knee, not elsewhere classified (principal); G89.29 Other chronic pain; Z87.891 Personal history of nicotine dependence
CPT/HCPCS: 99282